=== PATIENT | female | born 1980 | race Caucasian/White ===

== ENCOUNTER 2016-08-29 15:56 | Emergency (ER) | payer BC ==
[2016-08-29 16:02] VITALS: BP 103/58
--- NOTE | 2016-08-29 17:37 | UC ---
Hand/Wrist HPI - HPI Summary HPI Summary: Patient presents with complaints of sudden onset right wrist pain and swelling. She states that is began to swell and become painful this morning. She denies any injury or trauma. She does have repetitive motion at work with the right upper extremity. She states the pain is worse with movement, and improves at rest. She denies any numbness or tingling. - History Of Current Complaint Chief Complaint: UCUpperExtremity Stated Complaint: WRIST PAIN Time Seen by Provider: 08/29/16 17:21 Hx Obtained From: Patient Hx Last Menstrual Period: periods only every 3 mnths, lst a couple months ago ?: No Onset/Duration: Sudden Onset Severity Initially: Moderate Severity Currently: Moderate Character Of Pain: Aching Aggravating Factor(s): Movement, Flexion, Extension, Internal/External Rotation , Twisting Alleviating: Rest Associated Signs And Symptoms: Positive: Swelling - Allergies/Home Medications Allergies/Adverse Reactions: Allergies Allergy/AdvReac Type Severity Reaction Status Date / Time No Known Allergies Allergy Verified 08/29/16 16:02 PMH/Surg Hx/FS Hx/Imm Hx Previously Healthy: Yes - Surgical History Surgical History: None Surgery Procedure, Year, and Place: denies - Family History Known Family History: Positive: Other - bowel cancer - Social History Alcohol Use: Weekly Substance Use Type: None Smoking Status (MU): Never Smoked Tobacco Review of Systems Musculoskeletal: Arthralgia, Decreased ROM, Edema All Other Systems Reviewed And Are Negative: Yes Physical Exam Triage Information Reviewed: Yes Appearance: Well-Appearing Vital Signs: Initial Vital Signs Temp 98.5 F 08/29/16 16:01 Pulse 92 08/29/16 16:01 Resp 16 08/29/16 16:01 BP 103/58 08/29/16 16:01 Pulse Ox 98 08/29/16 16:01 Vital Signs Reviewed: Yes Eye Exam: Normal ENT Exam: Normal Neck exam: Normal Respiratory Exam: Normal Cardiovascular Exam: Normal Musculoskeletal: Positive: ROM Intact, Edema @ - right medial wrist. Skin Exam: Normal Hand/Wrist Course/Dx - Course Course Of Treatment: Patient presents with sudden onset nontraumtic right wrist pain and swelling consistent with tendonitis. She does have repetitive movements at work. She is neurovasc intact. Instructions included rest, elevate , ice, nsaids, and cock up splint provided. If for any reason her symtoms do not improve as anticipated she was instructed to return for f/u or see PCP. She verablized understanding of the instruction and was discharged home in stable condition. - Differential Dx/Diagnosis Differential Diagnosis/HQI/PQRI: Tendonitis Provider Diagnoses: tednonitis Discharge - Discharge Plan Condition: Stable Disposition: HOME Patient Education Materials: Tendinitis (ED) Referrals: Alannah Valles MD [Primary Care Provider] -
== END 2016-08-29 17:42 | disposition home or self-care (01) ==
LOC: UCEAST 15:56
DX: M25.531 Pain in right wrist (principal)
CPT/HCPCS: 99212; G0463

== ENCOUNTER 2016-12-19 11:46 | Day surgery (SDC) | payer BC ==
[~2016-12-19 11:46] MED LIST: Bupivacaine 0.25% SDV* 30 ML ONE
[2016-12-19] MEDS ORDERED: Famotidine IV* 10 MG/ML 2 ML (20 mg) ONE (11:56)
[2016-12-19] MEDS ORDERED: ceFAZolin 2 GM PREMIX (*) 50 ML IVPB ONE (11:56)
[2016-12-19] MEDS ORDERED: Dexamethasone IV* 4 MG/ML 1 ML (4 MG) ONE (11:56)
[2016-12-19] MEDS ORDERED: ROPIVACAINE 5 MG/ML 30 ML BTL (0.5%) ONE (11:57)
[2016-12-19] MEDS ORDERED: fentaNYL* 50 MCG/ML 2 ML VIAL (100 MCG VIAL) ONE (11:59)
[2016-12-19] MEDS ORDERED: Midazolam* 1 MG/ML 2 ML VIAL (2 MG) ONE (11:59)
[2016-12-19] MEDS ORDERED: Propofol* 10 MG/ML 20 ML BTL IV PUSH ONE (13:18)
[2016-12-19] MEDS ORDERED: HYDROmorphone INJ* 1 MG/ML CARPUJECT SYRINGE IV PRN (13:59)
[2016-12-19] MEDS ORDERED: DiMENhydriNATE IV* 50 MG/ML VIAL IV PUSH PRN (13:59)
[2016-12-19] MEDS ORDERED: Ondansetron INJ* 2 MG/ML VIAL ONE (14:09)
[2016-12-19] MEDS ORDERED: Ketorolac INJ* 30 MG/ML 1 ML VIAL ONE (14:09)
[2016-12-19 15:29] VITALS: BP 106/66
--- NOTE | 2016-12-21 07:54 | OP ---
CC: PCP* OPERATIVE NOTE: DATE OF OPERATION: 12/19/16 - [place] DATE OF : 84 SURGEON: Lexi Pedraza MD [place]: Yolanda Rodney An fundraising assistant was needed for the positioning, retraction, and was utilized through all portions of the case. ANESTHESIOLOGIST: Dr. Regalado. ANESTHESIA: General interscalene block. COMPLICATIONS: None. ESTIMATED BLOOD LOSS: Minimal. IMPLANTS USED: One Q-Fix anchor. PRE-OP DIAGNOSES: Bicipital right shoulder superior labral tear with impingement and partial thickness rotator cuff tear. POST-OP DIAGNOSES: Partial thickness tear of the rotator cuff, displaced type 2 or displaced type 4 SLAP tear and impingement. OPERATIVE PROCEDURE: 1. Right shoulder arthroscopy with extensive glenohumeral debridement including rotator cuff debridement. 2. Subacromial decompression with acromioplasty. 3. Subpectoral biceps tenodesis. 4. Subacromial injection with 80 mg of Depo. INDICATIONS: Evelin Lopez is a 36-year-old female who has had several months' history of shoulder pain refractory to conservative management who was diagnosed with an impingement syndrome and biceps tendonitis. She underwent an MRI, which demonstrated that she had bursitis. On exam, she had bicipital tendonitis. Risks and benefits of the surgery versus nonoperative treatment were discussed at length included but not limited to bleeding, infection, damage to nerves, vessels, surrounding structures, incomplete relief of symptoms , need for surgery, scarring, stiffness, persistent pain, and need for surgery. She has elected to proceed. DESCRIPTION OF PROCEDURE: The patient was greeted in the preoperative area by the attending surgeon. Correct extremity was marked and consent was confirmed. She underwent interscalene nerve block by the anesthesiologist, then she was brought back to the operating suite and she was placed in supine position on the operating table. She then underwent general anesthesia with endotracheal intubation after which she was placed in the left lateral position with an axillary roll. All bony prominences were well padded. The right shoulder was draped unsterile with 10 pounds of traction. All bony prominences were padded. Huber Hugger as well as SCDs were placed. The right shoulder was prepped and draped in usual sterile fashion beginning with chlorhexidine soap, scrub, alcohol wipe and a final prep of ChloraPrep. After appropriate surgical pause indicating site, side, procedure, and administration of antibiotics, a standard posterolateral portal was made sharply with an 11 blade. The scope was introduced into the joint and the joint was examined. The undersurface of the supraspinatus tendon had a mild amount of fraying. The superior labrum had a complete tear, which was either a type 2 or type 4 variant, which resulted in the superior labrum being scarred proximally. It was completely detached from the anterior aspect. The biceps ankle was still attached to the superior labrum, but again this was completely attached and scarred proximally just under the rotator cuff. The superior labrum was intact. The anterior and posterior labrum was intact. There was grade 0 changes in the glenohumeral joint. The biceps was then carefully tenotomized. The superior labrum had scarred quite a bit proximally, and the biceps had to be peeled back and then be thoroughly released. Some tissues remained slightly scarred in the yash. The undersurface of the rotator cuff was identified and there was small amount of partial tearing. This was debrided back using a shaver. The infraspinatus was intact. Attention was then directed to the subacromial space. The scope introduced into the subacromial space. There was a moderate amount of bursa present that was very inflamed and friable. This was then debrided back using a shaver. A small anterolateral spur was identified and then acromioplasty was done. All loose fluid and debris was removed. The CA ligament was carefully peeled back and an 18-gauge needle was placed under arthroscopic visualization for later injection. The bed was airplaned to the right side. The anterior aspect of the shoulder was prepped again using ChloraPrep. A 15-blade was used to make an incision in line with biceps. The soft tissues were carefully dissected. Hemostasis was maintained using electrocautery device. The undersurface of the pec was identified and then retracted proximally. The bicipital groove was palpated. A small gregg in the fascia was made and the biceps was got through the wound. There was abundant synovitis and inflammation that was apparent and it was very scarred to linear groove. The groove was then palpated and prepared in the usual fashion with electrocautery, a red ball rasp, and osteotome to allow for good bony bleeding bed. The Q-Fix anchor drill guide was then used to drill unicortically and Q-Fix was deployed with excellent purchase. The sutures were passed through the tendon. Once they were proximal to the musculotendinous junction, the excess stump was then excised. The biceps was shuttled back to the groove and tied down. The wounds were copiously irrigated with sterile saline. The portals were closed with 3-0 nylon. The anterior wound was closed with 2-0 Vicryl and 3-0 Monocryl. The subacromial space was injected with 80 mg of Depo-Medrol. Anterior aspect of the wound was injected with 0.25% plain Marcaine. Sterile dressings were applied. A Cryo/Cuff and UltraSling were applied. She was awoken from anesthesia and transferred to the PACU in stable condition. POSTOPERATIVE PLAN: She will be nonweightbearing. She will be in a sling for 4 weeks. She will be discharged with pain medications and antibiotics. She will start physical therapy in approximately 10 days. She will follow up in 10 to 14 days. DVT prophylaxis considered, but deferred due to no previous personal or family history. I will see the patient back in 10 to 14 days. [id number]/[facility] #: [id number] MTDJen
== END 2016-12-19 15:55 | disposition home or self-care (01) ==
LOC: OREAST 11:46
PROVIDERS: ATTEND Orthopaedic Surgery
DX: M75.111 Incomplete rotator cuff tear or rupture of right shoulder, not specified as traumatic (principal); M75.21 Bicipital tendinitis, right shoulder; M75.41 Impingement syndrome of right shoulder; Z87.891 Personal history of nicotine dependence
CPT/HCPCS: 81025; C1776; J0690; J1100; J1885; J2250; J2405; J2704; J2795; J3010